=== PATIENT | female | born 1990 | race Caucasian/White ===

== ENCOUNTER 2022-01-16 21:49 | Inpatient (IN) | payer BC ==
[~2022-01-16] VITALS: Ht 175.3 cm; Wt 97.3 kg
--- NOTE | 2022-01-16 21:50 | NUR ---
2150 G2L0 38.5 WEEK GEST TO LR5 WITH C/O SROM AT 2000 AND CONTRACTIONS STARTING AT 2014. EFM ON. SVE WITH POSITIVE AMNIOTRACE AND CLEAR FLUID NOTED. /-2. CONTRACTIONS EVERY 2-3 MINUTES AND BREATHING THRU CONTACTIONS. 2210 DR ROLES NOTIFIED AND ORDER TAKEN. ADM ASSESSMENT COMPLETED.
[2022-01-16 22:10] VITALS: BP 113/69; PULSE 87; TEMP 98.1
[2022-01-16] MEDS ORDERED: PRENATA1 CTB PO (22:20)
[2022-01-16] MEDS ORDERED: PROFERRIN ES12 MG PO (22:22)
[2022-01-16] MEDS ORDERED: ASPIRIN 81M81 MG/TA2 PO (22:22)
[2022-01-16 23:28] LABS: HEMOGLOBIN 12.4 g/dl (12.5-16.0); MEAN CELL VOLUME 89 fl (80.0-100.0); MEAN CORPUSCULAR HEMOGLOBIN 30 pg (27-31); MEAN CORPUSCULAR HGB CONC 34 g/dl (33.0-37.0); PLATELET COUNT 230 K/mm3 (130-400); RED BLOOD COUNT 4.11 M/mm3 (4.10-5.30); REDCELL DISTRIBUTION WIDTH-CV 13.3 % (11.5-14.5)
[2022-01-16 23:30] VITALS: BP 113/67; PULSE 81
[2022-01-16 23:32] LABS: HEMATOCRIT 36.7 % (37.0-47.0)
[2022-01-16 23:47] LABS: BAND 5 % (0-10); LYMPHOCYTE 20 % (20.0-51.0); METAMYELOCYTE 2 % (0-0); NEUTROPHILS 65 % (42.0-75.2)
[2022-01-16 23:48] LABS: PLATELET ESTIMATE NORMAL (NORMAL)
[2022-01-17] VITALS (26 sets, daily range): BP systolic 97–146; BP diastolic 49–79; PULSE 80–148; TEMP 97.9–98.5
--- NOTE | 2022-01-17 00:14 | NUR ---
PT REQUESTS TO BE OFF MONITORS. REASSURING FHT'S NOTED. MONITORS DC'D AT THIS TIME. PT CURRENTLY SITTING ON BIRTHING BALL AT BEDSIDE.
--- NOTE | 2022-01-17 00:30 | NUR ---
PT IN SHOWER PER REQUEST.
--- NOTE | 2022-01-17 01:12 | NUR ---
0110- PT CALLS OUT AND REQUESTS AN EPIDURAL. PT DENIES QUESTIONS ABOUT EPIDURAL AT THIS TIME. 0112- C. JAMARCUS RODRIGUEZ NOTIFIED OF PT REQUEST, COMING TO HOSPITAL FOR EPIDURAL PLACEMENT.
--- NOTE | 2022-01-17 01:45 | NUR ---
0135- Billy RODRIGUEZ CRNA IN ROOM FOR EPIDURAL PLACMENT. PT ALREADY IN SITTING POSITION AT BEDSIDE. DIFFICULTY TRACING FHT'S DUE TO MATERNAL POSITION, THIS NURSE ATTEMPTING TO HOLD US IN PLACE. FM AUDIBLE. 0140- SINGLE SHOT GIVEN BY Billy RODRIGUEZ CRNA. PT TOLERATED WELL. 0145- REPOSITIONED INTO DEMARCO POSITION. 0148- PT STATES RELIEVE WITH CONTRACTION. RESTING COMFORTABLY, LIGHTS DIMMED.
--- NOTE | 2022-01-17 02:50 | NUR ---
SEE PHYSICIAN NOTIFICATION CONCERNING PROLONGED DECEL.
--- NOTE | 2022-01-17 03:24 | NUR ---
COMPLETE/+1, PT TO DEMARCO POSITION TO LABOR DOWN.
--- NOTE | 2022-01-17 04:00 | NUR ---
0349- MCGUIRE DC'D, 200MLS URINE OUT. 0351- PT BEGINS PUSHING WITH THIS NURSE 0358- PT PUSHING WITH 3 CONTRACTIONS. DECELERATION INTO THE 70'S. PT INSTRUCTED TO NOT PUSH WITH FURTHER CONTRACTIONS. DR. FUNES CALLED TO COME TO HOSPITAL FOR PUSHING AND DELIVERY. FHT'S RECOVERED AFTER APPROXIMATELY 4 MINUTES TO BASELINE OF 140.
--- NOTE | 2022-01-17 05:20 | NUR ---
0455- DR. FUNES IN ROOM TO EVALUATE PUSHING. 0459- BED BROKEN DOWN FOR DELIVERY. 0506- SPONTANEOUS DELIVERY OF VIABLE BABY BOY. BABY TO MOTHER'S ABDOMEN. CORD CLAMPED BY DR. FUNES, CUT BY FOB. BABY CARES ASSUMED BY CARO OLVERA. 0510- SPONTANEOUS DELIVERY OF INTACT PLACENTA. PITOCIN STARTED AT 333ML/HR PER PROTOCOL. 0511- RED ANIBAL, 200MLS OUT. 0512- DR FUNES REPAIRS 2ND DEGREE PERINEAL LACERATION. 0520- RECOVERY STARTED.
--- NOTE | 2022-01-17 07:10 | NUR ---
Out of bed for first time post delivery. Gait steady, but patient states her legs feel wobbly. Slightly nauseated upon ambulating. Note patient has been up all night and has not yet ordered breakfast. Discussed importance of rest and nutrition and hydration. Verbalizes understanding. Unable to spontaneously void at this time. Reynaldo care provided. Mesh underwear, reynaldo pad, ice pack and tucks applied. Clean gown provided. Ambulates to room 207 with standby assist only.
--- NOTE | 2022-01-17 09:47 | NUR ---
Initial visit; Parents thanked Director Title for offering congratulations and God's blessings for the of their son. Director Title thanked Family for choosing [facility].
[2022-01-17] MEDS ORDERED: MOTRIN 800800 MG/TAB PO (10:49)
[2022-01-18 03:24] VITALS: BP 93/43; PULSE 76; TEMP 97.8
[2022-01-18 07:35] VITALS: BP 94/56; PULSE 79; TEMP 97.9
== END 2022-01-18 12:50 | disposition home or self-care (01) | DRG 807 ==
LOC: LDRO 21:49 → OB 22:45 → LDR 22:45 → OB 01-17 05:06
PROVIDERS: ADMIT Obstetrics & Gynecology
PROC: 10E0XZZ Delivery of Products of Conception, External Approach (ICD-10-PCS; principal; 2022-01-17)
PROC: 0KQM0ZZ Repair Perineum Muscle, Open Approach (ICD-10-PCS; 2022-01-17)
DX: O99.344 Other mental disorders complicating childbirth (principal); Z37.0 Single live birth; F32.A Depression, unspecified; O76 Abnormality in fetal heart rate and rhythm complicating labor and delivery; O70.1 Second degree perineal laceration during delivery; O69.81X0 Labor and delivery complicated by cord around neck, without compression, not applicable or unspecified; Z3A.38 38 weeks gestation of pregnancy; Z86.16 Personal history of COVID-19
CPT/HCPCS: J7120